=== PATIENT | female | born 1985 | race Caucasian/White ===

== ENCOUNTER 2018-12-19 09:55 | Emergency (ER) | payer OTHER, MEDICAID ==
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
[2018-12-19 11:06] VITALS: BP 127/78
== END 2018-12-19 11:05 | disposition home or self-care (01) ==
DX: S16.1XXA Strain of muscle, fascia and tendon at neck level, initial encounter (principal); S39.012A Strain of muscle, fascia and tendon of lower back, initial encounter; M54.6 Pain in thoracic spine; Q79.6 Ehlers-Danlos syndromes; V49.40XA Driver injured in collision with unspecified motor vehicles in traffic accident, initial encounter; Y92.410 Unspecified street and highway as the place of occurrence of the external cause

== ENCOUNTER 2019-01-24 07:42 | Emergency (ER) | payer MEDICAID, OTHER | END 2019-01-24 08:22 | disposition home or self-care (01) ==